=== PATIENT | female | born 1970 | race Hispanic/Latino ===

== ENCOUNTER → 2020-07-10 | Day surgery (SDC) | payer OTHER ==
[2020-07-07 12:36] LABS: BASOPHILS # (AUTO) 0.1 (0.0-0.1); BASOPHILS % 0.7 % (0.0-1.0); EOSINOPHILS # (AUTO) 0.4 (0.0-0.4); EOSINOPHILS % 3.3 % (0.0-6.0); HEMATOCRIT 42.7 % (34.2-44.1); HEMOGLOBIN 14.3 g/dL (12.0-16.0); LYMPHOCYTES # (AUTO) 2.9 (1.0-3.2); LYMPHOCYTES % 27.1 % (18.0-39.1); MEAN CORPUSCULAR HEMOGLOBIN 30.8 pg (28-32); MEAN CORPUSCULAR HGB CONC 33.5 g/dL (31-35); MEAN CORPUSCULAR VOLUME 91.8 fL (81-99); MONOCYTES # (AUTO) 0.6 (0.2-0.8); MONOCYTES % 5.7 % (4.4-11.3); NEUTROPHILS # (AUTO) 6.8 (2.1-6.9); NEUTROPHILS % 62.8 % (38.7-80.0); PLATELET COUNT 307 x10e3/uL (140-360); RED BLOOD COUNT 4.65 x10e6/uL (3.6-5.1); RED CELL DISTRIBUTION WIDTH 12.8 % (11.7-14.4)
--- NOTE | 2020-07-07 13:49 | Diagnostic Imaging Report ---
X-ray chest 2 views History: Preop Comparison: None Findings: Central airways: Unremarkable. Heart: Normal size. Mediastinal silhouettes: Unremarkable. Pleural spaces: No pleural effusion or pneumothorax. Lungs: No significant focal lung disease. Skeletal structures: Unremarkable. Extrathoracic soft tissues: Unremarkable. Impression: No significant abnormality on this exam.. Signed by: David Mcclure MD on 07/07/2020 1:46 PM
[~2020-07-10] MED LIST: ALBUTEROL0.63 MG/3 IN; BUPIVACAINE HCL 0.5% INJ 30 ML VIAL INJ ONE; CEFAZOLIN SOD 1 GM/NS 50ML 50 ML IV ONE; DEXAMETHASONE SOD PHOS INJ 4 MG/ML VIAL ONE; FENTANYL CITRATE/PF 100MCG/2 ML INJ ONE; KETOROLAC TROMETHAMINE 30 MG/ML VIAL ONE; LIDOCAINE HCL 2% LOCAL INJ 5 ML SDV VIAL INJ ONE; METOCLOPRAMIDE HCL 10 MG/2ML VIAL ONE; MIDAZOLAM HCL 2 MG/2 ML VIAL ONE; NORTREL 1-35 21 EACH PO; ONDANSETRON HCL INJ 2MG/ML 2ML 2 MG/ML VIAL ONE; PROPOFOL IV EMULSION 10 MG/ML 20 ML VIAL ONE; SEVOFLURANE INHAL SOLN 250 ML PEN BTL ONE
--- NOTE | 2020-07-10 07:15 | NUR ---
SPIRITUAL CARE - Pre-Surgery Assessment: Pt in bed. Pt's at bedside. Pt reported supportive attention from family and friends. Intervention: Archeology Professor provided pastoral presence, hospitality, and sympathetic listening. Acquainted pt with availability of vascular surgery physician while hospitalized. Outcome: Pt expressed appreciation for visit. No need for follow up indicated at this time. [facility] O: [phone]
[2020-07-10 09:56] VITALS: BP 118/76
--- NOTE | 2020-07-10 15:44 | Operative Report ---
DATE OF PROCEDURE: 07/10/2020 SURGEON: Isabel Ruelas DPM PREOPERATIVE DIAGNOSIS: Left hallux valgus. POSTOPERATIVE DIAGNOSIS: Left hallux valgus. PLANNED PROCEDURE: Left Lapidus bunionectomy with 1st metatarsal cuneiform joint fusion. SURGEON: Galilea Downing DPM ([place]). PROGRAMMER NUMERICAL CONTROL: Isabel Ruelas DPM. ANESTHESIA: General with a postoperative block consisting of 15 mL of 0.5% Marcaine plain mixed with 1 mL of dexamethasone phosphate. HEMOSTASIS: Pneumatic thigh tourniquet set at 350 mmHg for a total time of approximately 1 hour. MATERIALS: FullContact 4.0 cannulated screw measuring 38 mm, one 0-degree [employer] [place] plate and 4 screws combination locking and nonlocking measuring between 16 and 20 mm, 2-0 Vicryl, 3-0 Vicryl, and 4-0 Prolene. ESTIMATED BLOOD LOSS: Less than 10 mL. PATHOLOGY: None. PROCEDURE NOTE: The patient was seen in the preoperative waiting room, where the correct procedure and site was identified. The patient was brought to the operating room and placed on the operating table in supine position. General anesthesia was initiated. At this time, a well-padded pneumatic tourniquet was placed about the patient's left thigh. The left foot, ankle, and leg was then scrubbed, prepped, and draped in the usual aseptic manner. The left foot, ankle, and leg was exsanguinated with an Esmarch bandage and the pneumatic thigh tourniquet was inflated to 350 mmHg for a total time for approximately 1 hour. Attention was directed to the dorsal and medial aspect of the patient's left foot, where a large dorsal and medial eminence was noted to the 1st metatarsophalangeal joint with hypermobility present. The decision was made to proceed with a Lapidus bunionectomy with 1st metatarsal cuneiform joint fusion. An 8 cm lazy-S incision was made over the 1st metatarsal cuneiform joint extending to the 1st metatarsophalangeal joint. The incision was carried through the subcutaneous tissue them from deep or underlying structures. All vital and neurovascular structures were identified, retracted medially and laterally. All bleeders were cauterized or ligated as deemed necessary. At this time, through the same incision a full lateral release was performed consisting of the deep transverse metatarsal ligament, lateral collateral ligament as well as the fibular sesamoidal ligament. The hallux was then put through range of motion and found to be functioning in a more proper anatomic alignment. Next, an inverted L-capsulotomy was performed at the level of the 1st metatarsophalangeal joint. Utilizing a sagittal saw, the medial eminence was resected and passed off to the back table. Next, the attention was directed to the 1st metatarsal cuneiform joint, where a linear capsulotomy was performed to allow for good visualization of the metatarsal cuneiform joint. At this point, utilizing a sagittal saw, a wedge resection was taken at the distal aspect of the medial cuneiform with the apex medial and the wedge lateral. Next, utilizing a cartilage near the base of the 1st metatarsal was denuded of all articular cartilage. Next, subchondral drilling was performed with a 0.045 K-wire as well as fish scaling with an osteotome and mallet. Next, utilizing techniques of manipulation and distraction, the 1st intermetatarsal IM angle was reduced and the guidewire was placed. Utilizing intraoperative fluoroscopy, it was noted that the 1st IM angle was reduced. Tibial sesamoid position was within good limits and the hallux valgus angle was reduced as well. Next, per manufacture protocol, one 4.0 cannulated 30 mm cortical bone screw was placed across the arthrodesis type. Next, per manufacture protocol, one 0-degree [place] plate was placed medially neutralizing the arthrodesis site. Four combination locking and nonlocking screws measuring between 16 and 20 mm were placed. The wound was then copiously irrigated with sterile saline. Capsule and deep tissue were reapproximated with 2-0 Vicryl, subcutaneous tissue with 3-0 Vicryl, and the skin was closed using a running interlocking stitch with 4-0 nylon. The incision site was dressed with Adaptic, 4x4s, Kerlix, 4-inch Webril, a 4 x 30 posterior splint, 4-inch Rajendra wrap, and a 6-inch Rajendra wrap. The patient tolerated the procedure and anesthesia well. The patient was transferred to the postoperative recovery unit with vital signs stable and vascular status intact. The patient is monitored there for a short period of time before being sent home with the following written and oral instructions. 1. Keep the dressing clean, dry, and intact. 2. The patient is to remain nonweightbearing to the left lower extremity to avoid any ambulation until being seen in the office. 3. The patient was given the office number and instructed to contact us if any problems arise. Dictated by Isabel Ruelas DPM S [facility] ([facility])/MODL /[id number]
== END | disposition home or self-care (01) ==
LOC: OR 05:24
PROVIDERS: ATTEND Podiatrist Foot & Ankle Surgery
DX: M20.12 Hallux valgus (acquired), left foot (principal); J45.909 Unspecified asthma, uncomplicated; F17.210 Nicotine dependence, cigarettes, uncomplicated; Z88.6 Allergy status to analgesic agent; Z01.810 Encounter for preprocedural cardiovascular examination; Z01.812 Encounter for preprocedural laboratory examination; Z01.818 Encounter for other preprocedural examination; Z11.59 Encounter for screening for other viral diseases
CPT/HCPCS: 28297; 36415; 71046; 81025; 85025; 93005; C1713 ×5; J0690; J1100; J1885; J2001; J2405; J2704; J2765; U0002; J2250; J3010